=== PATIENT | female | born 2000 | race Caucasian/White ===

== ENCOUNTER 2022-02-07 12:09 | Emergency (ER) | payer SELFPAY ==
[~2022-02-07] VITALS: Ht 165.1 cm; Wt 56.2 kg
--- NOTE | 2022-02-07 12:39 | NUR ---
TISHAPrem FROM A BUSINESS ESTABLISHMENT, WITNESSED BANGING HER HEAD ON THE WALL, [employer] UNIT#[id number] FOR DANGER TO SELF, HX OF METH USE PER EMS. TO ER BED 14, HOOKED TO MONITOR, CHANGED TO [facility], WARM BLANKET PROVIDED. AWAITING MD CARTWRIGHT. SAFETY PRECAUTIONS APPLIED
--- NOTE | 2022-02-07 12:51 | NUR ---
rapid covid swab done and sent to lab
--- NOTE | 2022-02-07 12:56 | NUR ---
urine sample collected via straight catheter, sample sent to lab
[2022-02-07] MEDS ORDERED: LORAZEPAM INJ 2 MG/ML VIAL IM ONE (13:00)
[2022-02-07] MEDS ORDERED: diphenhydrAMINE HCL 50 MG/ML VIAL IM ONE (13:00)
[2022-02-07] MEDS ORDERED: HALOPERIDOL LACTATE INJ 5 MG/ML VIAL IM ONE (13:00)
[2022-02-07] MEDS ORDERED: LORAZEPAM INJ 2 MG/ML VIAL ONE (13:00)
[2022-02-07] MEDS ORDERED: diphenhydrAMINE HCL 50 MG/ML VIAL ONE (13:01)
[2022-02-07] MEDS ORDERED: HALOPERIDOL LACTATE INJ 5 MG/ML VIAL ONE (13:01)
[2022-02-07 13:03] LABS: BASOPHILS % (AUTO) 0.4 % (0.0-2.0); EOSINOPHILS % (AUTO) 2.4 % (0.0-6.0); HEMATOCRIT 28 % (33-45); HEMOGLOBIN 9.2 g/dL (11.5-14.8); LYMPHOCYTES # (AUTO) 1.7 K/uL (0.8-4.8); LYMPHOCYTES % (AUTO) 16.2 % (20.0-44.0); MEAN CORPUSCULAR HGB CONC 32 g/dl (31.0-36.0); MEAN CORPUSCULAR VOLUME 84 fL (82-100); MONOCYTES # (AUTO) 0.8 K/uL (0.1-1.30); MONOCYTES % (AUTO) 7.9 % (2.0-12.0); NEUTROPHILS # (AUTO) 7.8 K/uL (1.8-8.9); NEUTROPHILS % (AUTO) 73.1 % (43.0-81.0); PLATELET COUNT (AUTO) 271 K/uL (150-450); RED BLOOD CELL COUNT(AUTO) 3.39 MIL/uL (4.0-5.2); WHITE BLOOD COUNT (AUTO) 10.7 K/uL (4.3-11.0)
--- NOTE | 2022-02-07 13:03 | NUR ---
Note sofiya in EDM - 02/07/22 at 1451 by SALEEM DASIA FROM A BUSINESS ESTABLISHMENT, WITNESSED BANGING HER HEAD ON THE WALL, [employer] UNIT#[id number] FOR DANGER TO SELF, HX OF METH USE PER EMS. TO ER BED 14, HOOK[facility] TO MONITOR, [facility]. AWAITING MD CARTWRIGHT. SAFETY PRECAUTIONS APPLIED
[2022-02-07 13:11] LABS: BILIRUBIN,URINE NEGATIVE (NEGATIVE); COLOR,URINE YELLOW (YELLOW); LEUKOCYTE ESTERASE ,URINE SMALL (NEGATIVE); NITRITE, URINE NEGATIVE (NEGATIVE); PH,URINE 5.5 (5.0-8.0); PROTEIN,URINE 30 mg/dl (NEGATIVE); UGLUCOSE NEGATIVE (NEGATIVE); UROBILINOGEN,URINE 0.2 EU/dL (0.2)
[2022-02-07 13:36] LABS: ALANINE AMINOTRANSFERASE 40 U/L (12-78); ALBUMIN 3.8 g/dL (3.4-5.0); ALCOHOL, BLOOD < 3 mg/dL (0-0); ALKALINE PHOSPHATASE 86 U/L (46-116); ASPARTATE AMINOTRANSFERASE 40 U/L (15-37); BILIRUBIN,DIRECT 0.1 mg/dL (0.0-0.2); BILIRUBIN,TOTAL 0.3 mg/dL (0.2-1.0); CARBON DIOXIDE 27 mmol/L (21-32); CHLORIDE 107 mmol/L (98-107); CREATININE 0.9 mg/dL (0.6-1.3); GLUCOSE 89 mg/dL (74-106); POTASSIUM 3.4 mmol/L (3.5-5.1); SODIUM SERUM 142 mmol/L (136-145); TOTAL PROTEIN, SERUM 7.2 g/dL (6.4-8.2); UREA NITROGEN, BLOOD 31 mg/dL (7-18)
[2022-02-07 13:49] LABS: BACTERIA,URINE 2+ /HPF (None Seen); WBC,URINE 51-80 /HPF (0-3)
[2022-02-07 13:50] LABS: ACETAMINOPHEN < 10 ug/ml (10-30)
[2022-02-07 13:52] LABS: CALCIUM, SERUM 8.6 mg/dL (8.5-10.1)
--- NOTE | 2022-02-07 14:04 | NUR ---
medically cleared for psych eval per ER MD
[2022-02-07] MEDS ORDERED: NITROFURANTOIN/MONOHYDRATE MACROCRYSTALS 100 MG CAPSULE PO ONE (15:00)
--- NOTE | 2022-02-07 15:30 | NUR ---
PATIENT NOT AROUSABLE, NOT ABLE TO GIVE PO MED
[2022-02-07] MEDS ORDERED: NITROFURANTOIN/MONOHYDRATE MACROCRYSTALS 100 MG CAPSULE ONE ×2 (15:38→19:45)
--- NOTE | 2022-02-07 16:30 | NUR ---
PATIENT AROUSABLE BY TACTILE STIMULI, STILL DROWSY, WILL GO BACK TO SLEEP IMMEDIATELY, HOOKED TO MONITOR. WILL CONTINUE TO MONITOR
--- NOTE | 2022-02-08 01:10 | NUR ---
FUAD PAGED NO ETA
--- NOTE | 2022-02-08 01:12 | NUR ---
PROVIDED PT WITH FOOD AND DRINK, WILL CONTINUE TO MONITOR
--- NOTE | 2022-02-08 06:06 | NUR ---
Patient discharged to home in stable condition. Written and verbal after care instructions given. Patient verbalizes understanding of instruction.
[2022-02-08 06:07] VITALS: BP 113/70
== END 2022-02-08 06:07 | disposition home or self-care (01) ==
LOC: ER 12:13
DX: F15.10 Other stimulant abuse, uncomplicated (principal); F12.90 Cannabis use, unspecified, uncomplicated; Z20.822 Contact with and (suspected) exposure to COVID-19
CPT/HCPCS: 99285; 96372 ×2; 85025; 80048; 87086; 80076; 84703; 81001; 36415; 87426; 80143; 80320; 80307; J2060; J1200; J1630; C9803; G0480